=== PATIENT | female | born 1930 | race Caucasian/White ===

== ENCOUNTER → 2018-06-30 | Outpatient (CLI) | payer MEDICARE ==
--- NOTE | 2018-06-30 10:30 | RAD ---
EXAM: Lumbar spine, 5 views. HISTORY: Pain. COMPARISON: None. FINDINGS: 5 views of the lumbar spine are obtained. There is lumbar levoscoliosis centered at L3. There is minimal retrolisthesis of L1 on L2, L2 on L3 and L3 on L4, a component of which is likely projectional. There is degenerative endplate remodeling predominantly along the right aspect of L3-L4, corresponding with the level of maximum scoliotic curvature. There is facet arthropathy predominantly at the lower lumbar levels. There are surgical clips overlying the midline pelvis. 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 There is a cardiac pacemaker defibrillator. IMPRESSION: 1. Multilevel degenerative change throughout the lumbar spine, described above. 2. Mild lumbar levoscoliosis and multilevel retrolisthesis. Electronically signed by: Tere Raza MD (06/30/2018 10:28 AM) [facility]
== END | disposition home or self-care (01) ==
LOC: RAD 10:02
PROVIDERS: ATTEND Family Medicine
DX: M47.896 Other spondylosis, lumbar region (principal); M43.16 Spondylolisthesis, lumbar region; M41.86 Other forms of scoliosis, lumbar region; M12.88 Other specific arthropathies, not elsewhere classified, other specified site; I70.0 Atherosclerosis of aorta
CPT/HCPCS: 72110

== ENCOUNTER 2019-03-22 12:23 | Inpatient (IN) | payer MEDICARE ==
[~2019-03-22] VITALS: Ht 160 cm; Wt 53.6 kg
[2019-03-22 13:00] VITALS: BP 119/75
[2019-03-22] MEDS ORDERED: IPRA3AMP29 NEB (13:28)
[2019-03-22] MEDS ORDERED: ASPI81TA59 PO (13:28)
[2019-03-22] MEDS ORDERED: ACET-704 PO (13:28)
[2019-03-22] MEDS ORDERED: PANT40TA5 PO (13:28)
[2019-03-22] MEDS ORDERED: POLY17PO5 PO (13:28)
[2019-03-22] MEDS ORDERED: CARV25TA2 PO (13:28)
[2019-03-22] MEDS ORDERED: SCOP1PAT11 TD (13:28)
[2019-03-22] MEDS ORDERED: ONDA4TAB12 PO (13:28)
[2019-03-22] MEDS ORDERED: AMOX1TAB10 PO (13:28)
[2019-03-22] MEDS ORDERED: AMLO10TA8 PO (13:28)
[2019-03-22] MEDS ORDERED: PRED20TA PO (13:28)
[2019-03-22] MEDS ORDERED: LACT1CAP21 PO (13:28)
[2019-03-22] MEDS ORDERED: GLIP5TAB10 PO (13:28)
[2019-03-22] MEDS ORDERED: ROPI1TAB2 PO (13:28)
[2019-03-22] MEDS ORDERED: CLOP75TA57 PO (13:28)
[2019-03-22] MEDS ORDERED: INSU100V SQ (13:28)
[2019-03-22] MEDS ORDERED: DOXY100T PO (13:28)
[2019-03-22] MEDS ORDERED: LEVO25TA4 PO (13:28)
[2019-03-22] MEDS ORDERED: LIDO700A21 TP (13:28)
[2019-03-22] MEDS ORDERED: GUAI600T47 PO (13:28)
[2019-03-22 15:35] VITALS: BP 119/75
[2019-03-22 16:00] VITALS: BP 118/78
[2019-03-22] MEDS ORDERED: ACETAMINOPHEN/CODEINE 300/30MG TABLET PO PRN (19:15)
[2019-03-22] MEDS ORDERED: ONDANSETRON ODT 4 MG TAB.RAPDIS PO PRN (19:15)
[2019-03-22] MEDS ORDERED: DEXTROSE 50% 25 GM / 50ML DISP.SYRIN. IV PRN (20:00)
[2019-03-22] MEDS: rOPINIRole 1 MG TABLET. PO SCH (20:58)
[2019-03-22] MEDS: INSULIN LISPRO 300 UNITS/3 ML VIAL. SQ SCH (20:58)
[2019-03-22] MEDS: glipiZIDE 5 MG TABLET PO SCH (20:58)
[2019-03-22] MEDS: DOXYCYCLINE HYCLATE 100 MG TABLET PO SCH (20:59)
[2019-03-22] MEDS: LACTOBACILLUS RHAMNOSUS GG 1 CAPSULE. PO SCH (20:59)
[2019-03-22] MEDS: amLODIPine BESYLATE 10 MG TABLET PO SCH (20:59)
[2019-03-22] MEDS: AMOXICILLIN/K CLAV 500/125MG TABLET. PO SCH (20:59)
[2019-03-22] MEDS: IPRATRPIUM/ALBUTEROL 0.5/2.5MG 3 ML NEBU. NEB SCH (22:44)
[2019-03-23 05:26] VITALS: BP 130/80
[2019-03-23] MEDS: LEVOTHYROXINE 25 MCG TABLET. PO SCH (05:51)
[2019-03-23] MEDS: IPRATRPIUM/ALBUTEROL 0.5/2.5MG 3 ML NEBU. NEB SCH ×4 (06:25→21:51)
[2019-03-23] MEDS: INSULIN LISPRO 300 UNITS/3 ML VIAL. SQ SCH ×3 (08:00→16:59)
[2019-03-23] MEDS ORDERED: INSULIN LISPRO 300 UNITS/3 ML VIAL. SQ SCH (08:00)
[2019-03-23] MEDS ORDERED: NON FORMULARY ITEM (Insulin Lispro (Humalog) 0 UNIT) SQ SCH (08:00)
[2019-03-23] MEDS: AMOXICILLIN/K CLAV 500/125MG TABLET. PO SCH ×2 (08:50→20:32)
[2019-03-23] MEDS: CLOPIDOGREL BISULFATE 75 MG TABLET PO SCH (08:51)
[2019-03-23] MEDS: LACTOBACILLUS RHAMNOSUS GG 1 CAPSULE. PO SCH ×2 (08:51→20:32)
[2019-03-23] MEDS: glipiZIDE 5 MG TABLET PO SCH ×2 (08:51→16:56)
[2019-03-23] MEDS: DOXYCYCLINE HYCLATE 100 MG TABLET PO SCH ×2 (08:51→20:32)
[2019-03-23] MEDS: ASPIRIN 81 MG TAB.CHEW PO SCH (08:51)
[2019-03-23] MEDS: SCOPOLAMINE 1.5MG PATCH. TD SCH (08:51)
[2019-03-23] MEDS: PANTOPRAZOLE 40 MG TABLET. PO SCH (08:51)
[2019-03-23] MEDS: predniSONE 20 MG TABLET PO SCH (08:51)
[2019-03-23] MEDS: POLYETHYLENE GLYCOL 3350 17 GM PACKET. PO SCH (08:52)
[2019-03-23] MEDS: CARVEDILOL 12.5 MG TABLET PO SCH ×2 (08:52→16:56)
[2019-03-23] MEDS: LIDOCAINE (700MG/PATCH) PATCH. TP SCH (09:00)
[2019-03-23 17:50] VITALS: BP 136/78
[2019-03-23] MEDS: amLODIPine BESYLATE 10 MG TABLET PO SCH (20:32)
[2019-03-23] MEDS: rOPINIRole 1 MG TABLET. PO SCH (20:32)
[2019-03-24 05:42] VITALS: BP 136/73
[2019-03-24] MEDS: IPRATRPIUM/ALBUTEROL 0.5/2.5MG 3 ML NEBU. NEB SCH ×4 (05:47→20:00)
[2019-03-24] MEDS: LEVOTHYROXINE 25 MCG TABLET. PO SCH (06:04)
[2019-03-24] MEDS: INSULIN LISPRO 300 UNITS/3 ML VIAL. SQ SCH ×3 (08:00→17:34)
[2019-03-24] MEDS: LIDOCAINE (700MG/PATCH) PATCH. TP SCH (09:00)
[2019-03-24] MEDS: POLYETHYLENE GLYCOL 3350 17 GM PACKET. PO SCH (09:00)
[2019-03-24] MEDS: predniSONE 20 MG TABLET PO SCH (09:41)
[2019-03-24] MEDS: PANTOPRAZOLE 40 MG TABLET. PO SCH (09:41)
[2019-03-24] MEDS: CARVEDILOL 12.5 MG TABLET PO SCH ×2 (09:41→16:55)
[2019-03-24] MEDS: ASPIRIN 81 MG TAB.CHEW PO SCH (09:41)
[2019-03-24] MEDS: CLOPIDOGREL BISULFATE 75 MG TABLET PO SCH (09:41)
[2019-03-24] MEDS: glipiZIDE 5 MG TABLET PO SCH ×2 (09:42→16:55)
[2019-03-24] MEDS: LACTOBACILLUS RHAMNOSUS GG 1 CAPSULE. PO SCH ×2 (09:42→20:25)
[2019-03-24] MEDS: DOXYCYCLINE HYCLATE 100 MG TABLET PO SCH ×2 (09:42→20:25)
[2019-03-24] MEDS: AMOXICILLIN/K CLAV 500/125MG TABLET. PO SCH ×2 (09:43→20:25)
[2019-03-24 14:09] LABS: ALBUMIN 2.7 g/dL (3.4-5.0); ALBUMIN/GLOBULIN RATIO 0.8 (1.0-1.7); CALCIUM 8.2 mg/dL (8.5-10.1); CREATININE 1.6 mg/dL (0.6-1.0); GFR 30.6; POTASSIUM 4.6 mmol/L (3.5-5.1); TOTAL BILIRUBIN 0.4 mg/dL (0.2-1.0)
[2019-03-24 15:20] LABS: CLARITY,URINE CLOUDY; COLOR,URINE YELLOW
[2019-03-24 15:21] LABS: AMORPHOUS SEDIMENT,UR PRESENT /HPF; BACTERIA,URINE 0 /HPF (0-FEW); BILIRUBIN,URINE NEG (NEG); GLUCOSE,URINE NEG (NEG); NITRITE,URINE NEG (NEG); RBC,URINE 0 /HPF (0-2); SQUAMOUS EPITHELIAL CELL,UR OCC /LPF; UROBILINOGEN,URINE 0.2 mg/dL (0.2 mg/dL); YEAST,URINE PRESENT /HPF
--- NOTE | 2019-03-24 17:36 | HP ---
ADMIT DATE: 03/24/2019 HISTORY OF PRESENT ILLNESS: The patient is an 88-year-old female patient who was admitted to [facility] on ____ with a complaint of fall. She apparently has fallen, has multiple falls at the [facility] when she was trying to get up to go to the bathroom and her son indicates the patient has been having some hallucination in the nursing facility over the last few days. He also reported that since she was started on Percocet, she became very confused and since that time, she has not fully returned to her normal baseline. She was discharged with a Kumar catheter secondary to urinary retention on 03/15/2019. She was also admitted with hyponatremia, hyperkalemia, acute kidney injury and hyperglycemia. She was treated with gentle hydration as well as replacing her potassium. She was also found to be hypothyroid with TSH of more than 10 and was started on 25 mcg levothyroxine. She was also found to have severe low vitamin B12 and was started on oral vitamin B12. While at [facility], she apparently had also multiple episodes of nausea and vomiting and therefore, she was seen in consultation by the director of land acquisition as well as speech therapist. She apparently was seen in consultation by the Gastroenterology team and she underwent upper GI endoscopy, which showed that she has distal esophagitis, tortuosity, and mild regurgitated fluid. She has also large 8 cm hiatal hernia with some retained bile and food particles and he recommended a liquid or soft diet, small meals and continued other treatment. Her kidney function improved and her creatinine came down from 1.7 to 1.3. Her sodium has normalized as well as her potassium and therefore, the patient was transferred to [facility] swing bed to continue the process of rehabilitation. PAST MEDICAL HISTORY: Significant for atrial fibrillation, congestive heart failure, hypertension, aortic stenosis, chronic obstructive pulmonary disease, cerebrovascular accident, cancer, anxiety, osteoarthritis, and type 2 diabetes. PAST SURGICAL HISTORY: Significant for a permanent pacemaker placement, appendectomy, hernia repair, hysterectomy, colon resection. She has also aortic stenosis, status post bioprosthetic aortic valve replacement and she has also had biventricular ICD placement and most recently, she also underwent a Dipti fundoplication and most recently kyphoplasty on 03/09/2019. FAMILY HISTORY: Positive for hypertension and diabetes. SOCIAL HISTORY: She lives with her grandson and his . She continued to smoke a pack a day, does not drink alcohol or use any recreational drugs. ALLERGIES: She has no known drug allergies. MEDICATIONS: She is currently on following medications: She is on amoxicillin/potassium clavulanate 500/____ one tablet twice a day, doxycycline 100 mg p.o. b.i.d., ipratropium bromide and albuterol sulfate for DuoNeb in 3 mL by nebulizer 4 times a day, Plavix 75 mg once a day, carvedilol 12.5 mg twice a day with meals, amlodipine besylate 10 mg at bedtime, aspirin 81 mg chewable tablet once a day, acetaminophen with codeine 1 tablet every 6 hours, Requip 1 mg tablet at bedtime, guaifenesin 600 mg tablet twice a day, polyethylene glycol 17 grams p.o. daily, ondansetron 4 mg tablet every 6 hours, scopolamine patch 1.5 mg topically every 72 hours, Protonix 40 mg once a day, lactobacillus rhamnosus for Culturelle 1 tablet once a day, prednisone 40 mg daily, glipizide 5 mg p.o. b.i.d., levothyroxine sodium 25 mcg once a day and Lidoderm patch 1 patch topically on for 12 hours and off for 12 hours. REVIEW OF SYSTEMS: As per history of present illness. PHYSICAL EXAMINATION: GENERAL: When I saw her today, she was sitting in her chair comfortably in no apparent distress. She was pale. No jaundice, cyanosis, or thyromegaly. No jugular venous distention. No limb edema. VITAL SIGNS: Her heart rate was 85, blood pressure was 136/73, temperature was 98.2, respiratory rate was 18, and oxygen saturation was 97% on room air. HEAD, EYES, EARS, NOSE, AND THROAT: Showed normocephalic and atraumatic. NECK: Supple. HEART: Showed normal first and second heart sounds. No gallop, rub or murmur. CHEST: Showed central trachea, equally reduced expansion, reduced air entry, and vesicular breath sounds. I could not appreciate any crepitation or rhonchi. ABDOMEN: Scaphoid, soft, and nontender. No guarding or rigidity. No organomegaly. All hernial orifices are intact. Bowel sounds are normal. NEUROLOGIC: She is very hard of hearing, but all her other cranial nerves are intact. She ambulates with a walker. LABORATORY DATA: Her most recent lab work available showed her white cell count to be 7000, hemoglobin 12, hematocrit 36, MCV 93, and platelet count 268,000. Her chemistry showed a serum sodium 138, potassium 3.4, chloride 104, bicarbonate 25, anion gap of 9, BUN 21, creatinine 1.3. Estimated GFR was 39 mL per minute. Her glucose 160. Calcium was 8.5. Urinalysis was essentially unremarkable and was negative for ketones, nitrites and there was large amount of leukocyte esterase. There were 20-40 rbc's, 5-10 wbc's, and moderate amount of bacteria. Her urine culture grew more than 100,000 colony forming units per mL of yeast isolated. 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 ASSESSMENT AND PLAN: 1. In summary, this is an 88-year-old female patient who was transferred from [facility] where she was admitted with [id number] kidney injury, likely vasomotor secondary to vomiting and poor p.o. intake. It has resolved. 2. ____Hyperkalemia, resolved. 3. Her urinary tract infection was treated with the Rocephin and her Kumar catheter was removed. Other medical problems include type 2 diabetes, atrial fibrillation, ischemic cardiomyopathy, chronic diastolic congestive heart failure, coronary artery disease, status post PCI with stent deployment, status post coronary artery bypass graft, chest pain free. She has aortic stenosis, status post bioprosthetic aortic valve replacement, hypertension, hyperlipidemia, hypothyroidism, and hypovitaminosis B12. She also had old cerebrovascular accident, hearing loss, and recent T8 fracture, status post kyphoplasty. She also has recurrent falls. In fact, she has fallen once this morning, probably the fact that she has left cerebellar infarct contributing to her ataxia and tendency to fall. My plan is to repeat all her lab work. I will scan her bladder to make sure that she is not retaining urine. She also has yeast in her urine and I will probably arrange for her to start her on fluconazole treatment. SHARONDA CHANEL MD DR: JENNIFER/jesse JOB#: [id number] / [id number]
[2019-03-24 18:06] VITALS: BP 126/78
[2019-03-24] MEDS: amLODIPine BESYLATE 10 MG TABLET PO SCH (20:25)
[2019-03-24] MEDS: rOPINIRole 1 MG TABLET. PO SCH (20:25)
[2019-03-25 05:21] VITALS: BP 111/79
[2019-03-25] MEDS: LEVOTHYROXINE 25 MCG TABLET. PO SCH (06:02)
[2019-03-25 06:35] LABS: HEMATOCRIT 36.3 % (36.0-47.0); HEMOGLOBIN 12.2 g/dL (12.0-15.5); RED BLOOD COUNT 3.9 x10^6/uL (3.50-5.40); RED CELL DISTRIBUTION WIDTH 14.4 % (11.5-14.5); WHITE BLOOD COUNT 7.7 x10^3/uL (4.0-11.0)
[2019-03-25] MEDS: IPRATRPIUM/ALBUTEROL 0.5/2.5MG 3 ML NEBU. NEB SCH ×4 (08:00→22:04)
[2019-03-25] MEDS: INSULIN LISPRO 300 UNITS/3 ML VIAL. SQ SCH ×3 (08:00→16:59)
[2019-03-25] MEDS: POLYETHYLENE GLYCOL 3350 17 GM PACKET. PO SCH (08:59)
[2019-03-25] MEDS: predniSONE 20 MG TABLET PO SCH (08:59)
[2019-03-25] MEDS: DOXYCYCLINE HYCLATE 100 MG TABLET PO SCH ×2 (09:00→20:54)
[2019-03-25] MEDS: CLOPIDOGREL BISULFATE 75 MG TABLET PO SCH (09:00)
[2019-03-25] MEDS: LACTOBACILLUS RHAMNOSUS GG 1 CAPSULE. PO SCH ×2 (09:00→20:55)
[2019-03-25] MEDS: PANTOPRAZOLE 40 MG TABLET. PO SCH (09:00)
[2019-03-25] MEDS: LIDOCAINE (700MG/PATCH) PATCH. TP SCH (09:00)
[2019-03-25] MEDS: AMOXICILLIN/K CLAV 500/125MG TABLET. PO SCH ×2 (09:00→20:54)
[2019-03-25] MEDS: CARVEDILOL 12.5 MG TABLET PO SCH ×2 (09:01→17:00)
[2019-03-25] MEDS: glipiZIDE 5 MG TABLET PO SCH ×2 (09:01→17:00)
[2019-03-25] MEDS: ASPIRIN 81 MG TAB.CHEW PO SCH (09:01)
[2019-03-25 12:07] LABS: THYROXINE 6.7 ug/dL (4.5-12.0)
[2019-03-25] MEDS ORDERED: FLUCONAZOLE 100MG/50ML PREMIX 50 ML IV SCH (13:00)
[2019-03-25] MEDS: FLUCONAZOLE 100 MG TABLET. PO SCH (13:50)
[2019-03-25 17:59] VITALS: BP 145/75
[2019-03-25] MEDS: rOPINIRole 1 MG TABLET. PO SCH (20:54)
[2019-03-25] MEDS: amLODIPine BESYLATE 10 MG TABLET PO SCH (20:55)
[2019-03-26] MEDS: IPRATRPIUM/ALBUTEROL 0.5/2.5MG 3 ML NEBU. NEB SCH ×2 (05:17→09:44)
[2019-03-26] MEDS: LEVOTHYROXINE 25 MCG TABLET. PO SCH (05:49)
[2019-03-26 05:57] VITALS: BP 133/77
[2019-03-26] MEDS: INSULIN LISPRO 300 UNITS/3 ML VIAL. SQ SCH ×2 (08:00→12:01)
[2019-03-26 08:22] VITALS: BP 133/77
[2019-03-26] MEDS: glipiZIDE 5 MG TABLET PO SCH (08:22)
[2019-03-26] MEDS: CARVEDILOL 12.5 MG TABLET PO SCH (08:22)
[2019-03-26] MEDS: PANTOPRAZOLE 40 MG TABLET. PO SCH (08:22)
[2019-03-26] MEDS: DOXYCYCLINE HYCLATE 100 MG TABLET PO SCH (08:22)
[2019-03-26] MEDS: FLUCONAZOLE 100 MG TABLET. PO SCH (08:22)
[2019-03-26] MEDS: LACTOBACILLUS RHAMNOSUS GG 1 CAPSULE. PO SCH (08:23)
[2019-03-26] MEDS: CLOPIDOGREL BISULFATE 75 MG TABLET PO SCH (08:23)
[2019-03-26] MEDS: ASPIRIN 81 MG TAB.CHEW PO SCH (08:23)
[2019-03-26] MEDS: predniSONE 20 MG TABLET PO SCH (08:23)
[2019-03-26] MEDS: POLYETHYLENE GLYCOL 3350 17 GM PACKET. PO SCH (08:23)
[2019-03-26] MEDS: LIDOCAINE (700MG/PATCH) PATCH. TP SCH (08:23)
[2019-03-26] MEDS: AMOXICILLIN/K CLAV 500/125MG TABLET. PO SCH (08:40)
[2019-03-26] MEDS: SCOPOLAMINE 1.5MG PATCH. TD SCH (09:00)
[2019-03-26] MEDS ORDERED: FLUC100T4 PO (12:08)
--- NOTE | 2019-03-26 13:58 | DS ---
DATE OF DISCHARGE: 03/26/2019 HOSPITAL COURSE: The patient is an 88-year-old female patient who was admitted to [facility] on 03/09/2019 with a complaint of fall. She apparently had fallen, had multiple falls at the intermediate when she was trying to get up to go to the bathroom and her son indicates the patient had been having some hallucination in the nursing facility over the last few days prior to admission. He also reported that since she was started on Percocet she became very confused and since that time she has not fully returned to her baseline. She was discharged with a Kumar catheter secondary to urinary retention on 03/15/2019. She was also admitted with hyponatremia, hyperkalemia and acute kidney injury and hyperglycemia. She was treated with gentle hydration as well as replacing her potassium. She was also found to be hypothyroid with TSH of more than 10 and was started on 25 mcg of levothyroxine. She was found to have severe low vitamin B12 deficiency, was started on oral vitamin B12. While at [facility], she apparently also had multiple episodes of nausea and vomiting and therefore she was seen in consultation by the psychosocial rehabilitation counselor as well as speech therapist. She apparently was seen in consultation. She underwent upper GI endoscopy, which showed that she has distal esophagitis, tortuous, mild regurgitated fluid. She also has large 8 cm hiatal hernia with some retained bile and food particles and he recommended liquid or soft diet, small meals and continued other treatment. Her kidney function has improved and her creatinine came down from 1.7 to 1.3. Her sodium has normalized as well as her potassium and therefore the patient was transferred to [facility] for swing bed to continue the process of rehabilitation. When she arrived here, she was noted again to be retaining urine and therefore we were straight catheterizing her; however, she insisted to go home and continued to retain urine. A decision was made to place a catheter in to arrange for her to be seen by urologist as an outpatient. She did grow yeast in her urine culture while at [facility]; however, she was not started on any antifungal medication and we did start her on fluconazole 100 mg once a day, started yesterday. She should also continue antibiotic treatment for pneumonia in the form of Augmentin and doxycycline. PHYSICAL EXAMINATION: GENERAL: When I saw her today, she looked well and was clearly in no apparent respiratory distress. She was pale, but no jaundice, cyanosis or thyromegaly. No jugular venous distention. No lower limb edema. VITAL SIGNS: Her heart rate was 72, blood pressure was 133/77, temperature was 98, respiratory rate 20 and oxygen saturation was 96%. HEAD, EYES, EARS, NOSE AND THROAT: Showed normocephalic, atraumatic. NECK: Supple. HEART: Showed normal first and second heart sounds with no gallop, rub or murmur. CHEST: Clear to auscultation. No crepitation or rhonchi. ABDOMEN: Distended, soft, nontender. No guarding or rigidity. No organomegaly. All hernial orifices intact. Bowel sounds normal. NEUROLOGIC: She is awake, alert, very hard of hearing, but otherwise all cranial nerves intact. She moves extremities without difficulty. She ambulates with a walker. LABORATORY DATA: As of yesterday showed a white cell count 7700, hemoglobin 12, hematocrit 36, MCV 93 and platelet count 267,000. Her chemistry showed serum sodium of 133, potassium 4.6, chloride 100, bicarbonate 21, anion gap of 12, BUN 28, creatinine 1.6, estimated GFR was 30 mL per minute. Her glucose was 306, calcium was 8.2. Total bilirubin, AST, ALT, alkaline phosphatase were normal. Total protein was 6, albumin was 2.7. Urinalysis showed a large amount of yeast present and no bacteria. DISCHARGE MEDICATIONS: She was discharged home to continue on fluconazole 100 mg once a day for 9 more days, acetaminophen with codeine 1 tablet every 6 hours, amlodipine besylate 10 mg at bedtime, amoxicillin/clavulanic acid 500/125 one tablet twice a day for 3 more days, aspirin 81 mg once a day, carvedilol 12.5 mg twice a day, Plavix 75 mg once a day, doxycycline 100 mg twice a day for 3 more days, glipizide 5 mg twice a day, Mucinex 600 mg twice a day, ipratropium bromide, albuterol sulfate for DuoNeb 3 mL by nebulizer 4 times a day, lactobacillus rhamnosus 1 capsule daily, levothyroxine sodium 25 mcg once a day, Lidoderm patches 1 patch topically on for 12 hours and off for 12 hours, Protonix 40 mg once a day, polyethylene glycol 17 grams daily, prednisone taper 30 mg once a day for 3 days, 20 mg once a day for 3 days and 10 mg once a day for 3 days, Requip 1 mg at bedtime. We discontinued her ondansetron and scopolamine. FINAL DISCHARGE DIAGNOSES: 1. Debility and deconditioning, improving. 2. She has yeast urinary tract infection. 3. Pneumonia, for which she continues to finish the oral antibiotic in the form of Augmentin and doxycycline. 4. Chronic obstructive pulmonary disease. 5. Atrial fibrillation, rate controlled. 6. Congestive heart failure, clinically well compensated. 7. Hypertension. 8. Aortic stenosis, status post bioprosthetic aortic valve replacement. 9. Cerebrovascular accident. 10. Generalized osteoarthritis. 11. Type 2 diabetes mellitus. DISPOSITION: She will be discharged home with home health. SHARONDA CHANEL MD DR: JENNIFER/jesse JOB#: [id number] / [id number]
== END 2019-03-26 15:03 | disposition home health service (06) | DRG 948 ==
LOC: LND 12:23
PROVIDERS: ADMIT Internal Medicine; ATTEND Internal Medicine
DX: R53.81 Other malaise (principal); B37.49 Other urogenital candidiasis; E87.1 Hypo-osmolality and hyponatremia; I13.0 Hypertensive heart and chronic kidney disease with heart failure and stage 1 through stage 4 chronic kidney disease, or unspecified chronic kidney disease; J44.0 Chronic obstructive pulmonary disease with (acute) lower respiratory infection; N17.9 Acute kidney failure, unspecified; E03.9 Hypothyroidism, unspecified; E11.22 Type 2 diabetes mellitus with diabetic chronic kidney disease; E11.65 Type 2 diabetes mellitus with hyperglycemia; E53.8 Deficiency of other specified B group vitamins; E78.5 Hyperlipidemia, unspecified; E87.5 Hyperkalemia; F17.210 Nicotine dependence, cigarettes, uncomplicated; H91.90 Unspecified hearing loss, unspecified ear; I48.91 Unspecified atrial fibrillation; I50.9 Heart failure, unspecified; M15.9 Polyosteoarthritis, unspecified; N18.9 Chronic kidney disease, unspecified; R29.6 Repeated falls; K20.9 Esophagitis, unspecified; Z82.49 Family history of ischemic heart disease and other diseases of the circulatory system; Z83.3 Family history of diabetes mellitus; Z86.73 Personal history of transient ischemic attack (TIA), and cerebral infarction without residual deficits; Z95.3 Presence of xenogenic heart valve; Z95.810 Presence of automatic (implantable) cardiac defibrillator; Z90.710 Acquired absence of both cervix and uterus; F41.9 Anxiety disorder, unspecified
CPT/HCPCS: 36415; 80053; 81001; 82947; 84436; 84439; 84480; 85027; 94640; J1815; J7512; J7620; Q0162; 97110; 97116; 97530; 97535